=== PATIENT | male | born 2005 | race Hispanic/Latino ===

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

== ENCOUNTER 2023-08-03 09:49 | Emergency (ER) | payer OTHER ==
[~2023-08-03] VITALS: Ht 185.4 cm; Wt 79.6 kg
[2023-08-03] MEDS ORDERED: IBU600 MG PO (12:15)
[2023-08-03 12:32] VITALS: BP 113/65
== END 2023-08-03 12:33 | disposition home or self-care (01) ==
LOC: ED 09:49
DX: S20.211A Contusion of right front wall of thorax, initial encounter (principal); V19.9XXA Pedal cyclist (driver) (passenger) injured in unspecified traffic accident, initial encounter; Y93.55 Activity, bike riding
CPT/HCPCS: 71046; 99283-25

== ENCOUNTER 2024-02-16 05:40 | Emergency (ER) | payer OTHER ==
[~2024-02-16] VITALS: Ht 185.4 cm; Wt 85.7 kg
[~2024-02-16 05:40] MED LIST: IBU600 MG PO
[2024-02-16 07:55] VITALS: BP 124/70
== END 2024-02-16 07:55 | disposition left against medical advice (07) ==
LOC: ED 05:40 → EDSEX 06:40 → ED 06:40 → EDBD 06:40 → ED 07:55
DX: S01.01XA Laceration without foreign body of scalp, initial encounter (principal); X99.1XXA Assault by knife, initial encounter; Z53.29 Procedure and treatment not carried out because of patient's decision for other reasons
CPT/HCPCS: 12002; 70450; 72125; 99284-25